=== PATIENT | female | born 1955 | race Caucasian/White ===

== ENCOUNTER → 2017-06-22 | Outpatient (CLI) | payer OTHER ==
[~2017-06-22] MED LIST: ADVAIR HFA115 MCG/21 INH; LEVOTHYROXIN0.025 MG PO; LIORESAL 10 MG10 MG PO; MOTION RELIEF25 MG PO; NEURONTIN600 MG PO; NORCO 10-325 T1 EACH PO; PROPRANOLOL 1010 MG PO; PROTONIX 20 MG20 M1 PO; TRAZODONE 150150 M1 PO; VENLAFAXINE HCL75 M2 PO; VENTOLIN HFA 1818 GM INH; ZPAK PO
== END ==
LOC: M.RAD 10:13
DX: Z12.31 Encounter for screening mammogram for malignant neoplasm of breast (principal)

== ENCOUNTER → 2018-07-25 | Outpatient (CLI) | payer OTHER | LOC: M.RAD 07-14 10:10 | DX: Z12.31 Encounter for screening mammogram for malignant neoplasm of breast (principal) ==

== ENCOUNTER → 2019-10-25 | Outpatient (CLI) | payer OTHER | LOC: M.RAD 12:54 | DX: Z12.31 Encounter for screening mammogram for malignant neoplasm of breast (principal) ==

== ENCOUNTER → 2021-01-28 | Outpatient (CLI) | payer OTHER | LOC: M.RAD 12:54 | PROVIDERS: ATTEND Internal Medicine Geriatric Medicine | DX: Z12.31 Encounter for screening mammogram for malignant neoplasm of breast (principal) ==